=== PATIENT | male | born 1965 | race Caucasian/White ===

== ENCOUNTER 2017-03-30 19:19 | Emergency (ER) | payer BC ==
[2017-03-30 21:05] LABS: Appearance,Urine Clear (Clear); Bilirubin,Urine Negative (Negative); Blood,Urine Small (Negative); Color,Urine Yellow; Glucose,Urine (UA) Negative (Negative); Hyaline Casts,Urine 10 /lpf (0-2); Ketones,Urine Negative (Negative); Leukocyte Esterase,Urine Negative (Negative); Mucus,Urine Rare /hpf; Nitrite,Urine Negative (Negative); Protein,Urine 1+ (Negative); RBC,Urine 10 /hpf (0-5); Specific Gravity,Urine 1.024 (1.001-1.035); Squamous Epithelial Cell,Urine 1 /hpf (0-4); WBC,Urine 3 /hpf (0-5)
[2017-03-30] MEDS ORDERED: SODIUM CHLORIDE 0.9% 1,000 ML IV STA (21:14)
[2017-03-30] MEDS ORDERED: KETOROLAC 30 MG/ML 1 ML VIAL IVP STA (21:15)
--- NOTE | 2017-03-30 21:38 | ED ---
General Adult HPI - General Chief complaint: Abdominal Pain Stated complaint: Lumbar/Kidney Pain Time Seen by Provider: 03/30/17 21:00 Source: patient, RN notes reviewed Mode of arrival: ambulatory Limitations: no limitations - History of Present Illness Initial comments: Patient's a 51-year-old male who presents emergency room today with chief complaint of hematuria. He states he noticed this yesterday. States follow-up the family doctor earlier today had hematuria as well. States he's worried about possible kidney stone. Patient has mid to a history of chronic low back pain. He states that there is no new injury or trauma. He does not that this pain is worse with movements he feels in the middle of the lower back. Patient denies any bowel or bladder incontinence or retention. He denies any saddle she 's appeared denies any bites or associated symptoms. Patient denies any recent fever, chills, shortness of breath, chest pain, abdominal pain, nausea or vomiting, constipation or diarrhea, headaches or visual changes, or any other complaints. - Related Data Home Medications Medication Instructions Recorded Confirmed Baclofen 10 mg PO QID PRN 04/26/15 03/30/17 Diazepam [Valium] 5 mg PO BID PRN 04/26/15 03/30/17 Acetaminophen with Codeine 1 tab PO Q6HR PRN 03/30/17 03/30/17 [Tylenol w/codeine #4] Fish Oil/Dha/Epa [Fish Oil 1,200 1 cap PO DAILY 03/30/17 03/30/17 mg Fish Oil] Ibuprofen [Motrin] 800 mg PO TID 03/30/17 03/30/17 Lidocaine 5% Patch [Lidoderm] 1 patch TRANSDERM Q12H 03/30/17 03/30/17 Loratadine [Claritin] 10 mg PO DAILY 03/30/17 03/30/17 Multivitamins, Thera [Multivitamin 1 tab PO DAILY 03/30/17 03/30/17 (formulary)] Naproxen [Naprosyn] 250 mg PO BID PRN 03/30/17 03/30/17 Omeprazole 20 mg PO BID 03/30/17 03/30/17 Tapentadol HCl [Nucynta] 100 mg PO Q6H PRN 03/30/17 03/30/17 amLODIPine BESYLATE/BENAZEPRIL 1 cap PO BID 03/30/17 03/30/17 [Lotrel 5-20 mg Capsule] methylPREDNISolone [Medrol Dose See Taper PO DAILY 03/30/17 03/30/17 Pack] traMADol HCL [traMADol HCL ER] 200 mg PO DAILY PRN 03/30/17 03/30/17 Allergies Allergy/AdvReac Type Severity Reaction Status Date / Time pseudoephedrine Allergy Rash/Hives [facility]17 [facility] Review of Systems ROS Statement: Those systems with pertinent positive or pertinent negative responses have been documented in the HPI. ROS Other: All systems not noted in ROS Statement are negative. Past Medical History Past Medical History: No Reported History History of Any Multi-Drug Resistant Organisms: None Reported Additional Past Surgical History / Comment(s): left wrist surgery Past Psychological History: No Psychological Hx Reported Smoking Status: Current every day smoker Past Alcohol Use History: None Reported Past Drug Use History: None Reported General Exam - General Exam Comments Initial Comments: General: The patient is awake and alert, in no distress, and does not appear acutely ill. Eye: Pupils are equal, round and reactive to light, extra-ocular movements are intact. No nystagmus. There is normal conjunctiva bilaterally. No signs of icterus. Ears, nose, mouth and throat: There are moist mucous membranes and no oral lesions. Neck: The neck is supple, there is no tenderness or JVD. Cardiovascular: There is a regular rate and rhythm. No murmur, rub or gallop is appreciated. Respiratory: Lungs are clear to auscultation, respirations are non-labored, breath sounds are equal. No wheezes, stridor, rales, or rhonchi. Gastrointestinal: Soft, non-distended, non-tender abdomen without masses or organomegaly noted. There is no rebound or guarding present. No CVA tenderness. Bowel sounds are unremarkable. Musculoskeletal: Normal ROM. Normal appearance of the thoracic or lumbar spine. Does no step-off or deformity. Tenderness and lower lumbar from L3 to L5. Strength 5/5. Sensation intact. Pulses equal bilaterally 2+. Neurological: A&O x 3. CN II-XII intact, There are no obvious motor or sensory deficits. Coordination appears grossly intact. Speech is normal. Skin: Skin is warm and dry and no rashes or lesions are noted. Psychiatric: Cooperative, appropriate mood & affect, normal judgment. Limitations: no limitations Course Vital Signs 03/30/17 03/30/17 20:45 21:56 Temperature 98.4 F Pulse Rate 95 Respiratory 20 16 Rate Blood Pressure 130/61 O2 Sat by Pulse 97 Oximetry Medical Decision Making - Medical Decision Making Case discussed in detail with attending physician Dr. Ellis. Patient reexamined at this time is currently sleeping. His doesn't that pain is much improved here in the emergency room. This felt that part of his pain could be muscular skeletal as he does admit to a history of chronic low back pain. Does seem to be worse with certain movements. Patient x-ray of the abdomen and pelvis reveals bilateral stones in the kidney nothing that seems to be dropped down to the ureter. There is evidence for some masses was discussed with the patient about the importance of following up with his family doctor does have an appointment 2 days. He was advised to also follow up with nephrology. Patient at this time is comfortable will be discharged home does have Tylenol for at home that he can use. He is advised to return if symptoms increase or worsen. - Lab Data Result diagrams: 03/30/17 21:30 03/30/17 21:30 Lab Results 03/30/17 03/30/17 03/30/17 Range/Units 20:45 21:30 21:30 WBC 12.1 H (3.8-10.6) k/uL RBC 4.07 L (4.30-5.90) m/uL Hgb 12.4 L (13.0-17.5) gm/dL Hct 37.9 L (39.0-53.0) % MCV 93.2 (80.0-100.0) fL MCH 30.4 (25.0-35.0) pg MCHC 32.6 (31.0-37.0) g/dL RDW 13.7 (11.5-15.5) % Plt Count 252 (150-450) k/uL Neutrophils % 82 % Lymphocytes % 12 % Monocytes % 5 % Eosinophils % 0 % Basophils % 0 % Neutrophils # 10.0 H (1.3-7.7) k/uL Lymphocytes # 1.4 (1.0-4.8) k/uL Monocytes # 0.6 (0-1.0) k/uL Eosinophils # 0.1 (0-0.7) k/uL Basophils # 0.0 (0-0.2) k/uL Sodium 144 (137-145) mmol/L Potassium 4.1 (3.5-5.1) mmol/L Chloride 116 H (98-107) mmol/L Carbon Dioxide 19 L (22-30) mmol/L Anion Gap 9 mmol/L BUN 37 H (9-20) mg/dL Creatinine 2.00 H (0.66-1.25) mg/dL Est GFR (MDRD) Af Amer 43 (>60 ml/min/1.73 sqM) Est GFR (MDRD) Non-Af 35 (>60 ml/min/1.73 sqM) Glucose 149 H (74-99) mg/dL Calcium 9.0 (8.4-10.2) mg/dL Total Bilirubin 0.6 (0.2-1.3) mg/dL AST 132 H (17-59) U/L ALT 88 H (21-72) U/L Alkaline Phosphatase 78 (38-126) U/L Total Protein 5.9 L (6.3-8.2) g/dL Albumin 3.5 (3.5-5.0) g/dL Amylase <30 L (30-110) U/L Lipase 20 L (23-300) U/L Urine Color Yellow Urine Appearance Clear (Clear) Urine pH 6.0 (5.0-8.0) Ur Specific [place] 1.024 (1.001-1.035) Urine Protein 1+ H (Negative) Urine Glucose (UA) Negative (Negative) Urine Ketones Negative (Negative) Urine Blood Small H (Negative) Urine Nitrite Negative (Negative) Urine Bilirubin Negative (Negative) Urine Urobilinogen 2.0 (<2.0) mg/dL Ur Leukocyte Esterase Negative (Negative) Urine RBC 10 H (0-5) /hpf Urine WBC 3 (0-5) /hpf Ur Squamous Epith Cells 1 (0-4) /hpf Hyaline Casts 10 H (0-2) /lpf Urine Mucus Rare H (None) /hpf Disposition Clinical Impression: Kidney mass, Dehydration, Chronic back pain Disposition: HOME SELF-CARE Condition: Stable Instructions: Chronic Back Pain (ED) Additional Instructions: Please follow-up the family doctor with her scheduled appointment in 2 days. Please discuss about kidney masses that were seen on CT. Please continue current medications for pain. Please also follow-up with cycle manager. Please return to the emergency room for any other concerns. Referrals: Jackson Plunkett MD [Primary Care Provider] - 1-2 days Etta Craig MD [STAFF PHYSICIAN] - 1-2 days Time of Disposition: 22:38
[2017-03-30 22:00] LABS: ALT 88 U/L (21-72); AST 132 U/L (17-59); Albumin 3.5 g/dL (3.5-5.0); Alkaline Phosphatase 78 U/L (38-126); Amylase <30 U/L (30-110); Anion Gap 9 mmol/L; Blood Urea Nitrogen 37 mg/dL (9-20); Carbon Dioxide 19 mmol/L (22-30); Chloride 116 mmol/L (98-107); Glucose 149 mg/dL (74-99); Lipase 20 U/L (23-300); Potassium 4.1 mmol/L (3.5-5.1); Sodium 144 mmol/L (137-145); Total Bilirubin 0.6 mg/dL (0.2-1.3); Total Protein 5.9 g/dL (6.3-8.2)
--- NOTE | 2017-03-30 22:10 | CT ---
EXAMINATION TYPE: CT abdomen pelvis wo con DATE OF EXAM: 03/30/2017 COMPARISON: NONE HISTORY: Low back pain, painful urination and gross hematuria. CT DLP: 592.5 mGycm Automated exposure control for dose reduction was used. TECHNIQUE: Helical acquisition of images was performed from the lung bases through the pelvis. FINDINGS: Lung bases are clear. There is no pleural effusion. There is no pericardial effusion. Liver spleen pancreas gallbladder appear normal. Bile ducts are not dilated. There is no adrenal mass. There are rounded 2 cm somewhat exophytic densities on the cortex of the po sterior left kidney. There are numerous bilateral renal calculi. There is a similar 2 cm rounded dens ity on the posterior right kidney. There is no hydronephrosis. Ureters are not dilated. Bladder diste nds smoothly. There is no pelvic mass. Appendix appears normal. I see no intestinal wall thickening. There are no dilated loops. There is no retroperitoneal adenopathy. There are spondylotic changes in the lumbar spine. IMPRESSION: NUMEROUS BILATERAL NONOBSTRUCTING RENAL CALCULI. BILATERAL CORTICAL EXOPHYTIC ROUNDED RENAL MASSES. U LTRASOUND WOULD BE HELPFUL FOR FURTHER EVALUATION. THESE HAVE DENSITY HIGHER THAN WATER. NORMAL APPJERAD OJEDA.
[2017-03-30 22:14] LABS: Basophils % (A) 0 %; Eosinophils # (A) 0.1 k/uL (0-0.7); Eosinophils % (A) 0 %; HCT 37.9 % (39.0-53.0); HGB 12.4 gm/dL (13.0-17.5); Lymphocytes # (A) 1.4 k/uL (1.0-4.8); Lymphocytes % (A) 12 %; MCH 30.4 pg (25.0-35.0); MCHC 32.6 g/dL (31.0-37.0); MCV 93.2 fL (80.0-100.0); Monocytes # (A) 0.6 k/uL (0-1.0); Monocytes % (A) 5 %; Neutrophils % (A) 82 %; Platelet Count 252 k/uL (150-450); RBC 4.07 m/uL (4.30-5.90); RDW 13.7 % (11.5-15.5); WBC 12.1 k/uL (3.8-10.6)
[2017-03-30 23:18] VITALS: BP 132/80; PULSE 82; RESP 18; TEMP 98.2
== END 2017-03-30 23:10 | disposition home or self-care (01) ==
LOC: EC 19:19
DX: M54.5 Low back pain (principal); G89.29 Other chronic pain; E86.0 Dehydration; N28.89 Other specified disorders of kidney and ureter; F17.200 Nicotine dependence, unspecified, uncomplicated; Z88.8 Allergy status to other drugs, medicaments and biological substances; Z79.1 Long term (current) use of non-steroidal anti-inflammatories (NSAID); Z79.52 Long term (current) use of systemic steroids; Z79.899 Other long term (current) drug therapy
CPT/HCPCS: 99284; 96374; 96361; 36415; 80053; 82150; 83690; 85025; 81001; 87086; 74176; J1885

== ENCOUNTER → 2017-05-05 | Outpatient (CLI) | payer BC ==
--- NOTE | 2017-05-05 08:59 | US ---
EXAMINATION TYPE: US kidneys/renal and bladder DATE OF EXAM: 05/05/2017 COMPARISON: CT 2018, MRI CLINICAL HISTORY: D41.02 Left kidney mass, D41.01Right kidney mass; multiple renal stones EXAM MEASUREMENTS: Right Kidney: 10.5 x 6.1 x 4.1 cm Left Kidney: 10.5 x 7.2 x 4.9 cm Post Void Residual Volume: 5.2 mL Right Kidney: multiple renal calculi noted throughout and as per CT with approximate largest imaged m id pole = 0.7 x 1.0 x 0.4cm; superior pole anechoic focus with increased through transmission and imp erceptible wall compatible with simple cyst is noted = 2.5 x 2.6 x 2.6cm Left Kidney: multiple renal calculi noted throughout and approximate largest mid pole = 0.8 x 0.7 x 0 .6cm; multiple cortical cysts with largest at superolateral = 1.6 x 1.7 x 1.6cm., Likely simple, foci are anechoic, there is increased through transmission, imperceptible lopez Bladder: wnl Bilateral Jets seen: only right jet was seen after 3 minute observation Normal Post Void Residual: Yes There is no evidence for hydronephrosis at this point in time. Cortical medullary differentiation is maintained. IMPRESSION: Limitations as described. Bilateral nephrolithiasis. Simple cyst upper pole right kidney.
== END | disposition home or self-care (01) ==
LOC: RADUSWWP 07:16
PROVIDERS: ATTEND Urology
DX: N20.0 Calculus of kidney (principal); N28.1 Cyst of kidney, acquired; Z88.8 Allergy status to other drugs, medicaments and biological substances
CPT/HCPCS: 76770

== ENCOUNTER → 2018-06-06 | Outpatient (CLI) | payer BC ==
--- NOTE | 2018-06-06 09:06 | CT ---
EXAMINATION TYPE: CT sinus wo con DATE OF EXAM: 06/06/2018 COMPARISON: 04/26/2015 HISTORY: Chronic sinusits CT DLP: 590.[address] of the paranasal sinuses was performed in the axial and coronal planes. Bone and soft tissue settings are submitted. There is mucosal thickening of the maxillary sinuses left greater than right. Mild scattered ethmoida l air cell mucosal thickening noted. Minimal mucosal thickening of the sphenoid sinus. Mucous retenti on cyst or polyp within the sphenoid sinus. There is narrowing of the bilateral ostiomeatal units without obstruction. Nasal septum is deviated from right to left. Bilateral incidental middle turbinate mahad bullosa not ed. No bony destructive changes are seen within the field of view. IMPRESSION: Chronic sinusitis.
== END ==
LOC: RADCTMAIN 08:00
PROVIDERS: ATTEND Otolaryngology
DX: J32.9 Chronic sinusitis, unspecified (principal)
CPT/HCPCS: 70486

== ENCOUNTER → 2019-04-03 | Outpatient (CLI) | payer BC ==
[2019-04-03 09:52] LABS: HGB 15.8 gm/dL (13.0-17.5); MCH 30.4 pg (25.0-35.0); MCHC 33.6 g/dL (31.0-37.0); MCV 90.6 fL (80.0-100.0); Mean Platelet Volume 7.2; Platelet Count 244 k/uL (150-450); RBC 5.19 m/uL (4.30-5.90); RDW 13.4 % (11.5-15.5); WBC 6.6 k/uL (3.8-10.6)
[2019-04-03 10:06] LABS: Partial Thromboplastin Time 25.4 sec (22.0-30.0); Prothrombin Time 10.2 sec (9.0-12.0)
[2019-04-03 10:28] LABS: Albumin 4.7 g/dL (3.5-5.0); Potassium 4.5 mmol/L (3.5-5.1); Total Bilirubin 0.8 mg/dL (0.2-1.3); Total Protein 7.9 g/dL (6.3-8.2)
[2019-04-03 11:19] LABS: Appearance,Urine Clear (Clear); Color,Urine Yellow; Specific Gravity,Urine 1.015 (1.001-1.035)
[2019-04-03 11:20] LABS: Bilirubin,Urine Negative (Negative); Blood,Urine Negative (Negative); Glucose,Urine (UA) Negative (Negative); Ketones,Urine Negative (Negative); Leukocyte Esterase,Urine Negative (Negative); Nitrite,Urine Negative (Negative); Protein,Urine Negative (Negative); Urobilinogen,Urine <2.0 mg/dL (<2.0)
== END | disposition home or self-care (01) ==
LOC: LABPAT 09:03
PROVIDERS: ATTEND Orthopaedic Surgery
DX: Z01.818 Encounter for other preprocedural examination (principal); Z01.812 Encounter for preprocedural laboratory examination
CPT/HCPCS: 36415; 80053; 81003; 85027; 85610; 85730; 87070; 93005

== ENCOUNTER → 2022-10-29 | Outpatient (CLI) | payer BC ==
[2022-10-29 15:02] LABS: Blood Urea Nitrogen 17.3 mg/dL (9.0-27.0); Carbon Dioxide 24.5 mmol/L (21.6-31.8); Chloride 106 mmol/L (96-109); Potassium 4.5 mmol/L (3.5-5.5); Sodium 141 mmol/L (135-145)
[2022-10-29 16:03] LABS: HCT 44.6 % (39.6-50.0); HGB 14.7 d/dL (13.0-17.0); MCH 29.2 pg (27.0-32.0); MCV 88.7 FL (80.0-97.0); Mean Platelet Volume 10.5 FL (9.5-12.2); NRBC Per 100 WBC 0 X 10*3/uL (0.00-0.01); Platelet Count 224 X 10*3/uL (140-440); RBC 5.03 X 10*6/uL (4.40-5.60); WBC 5.66 X 10*3/uL (4.50-10.00)
== END | disposition home or self-care (01) ==
LOC: LABPAT 10:03
PROVIDERS: ATTEND Internal Medicine
DX: Z01.812 Encounter for preprocedural laboratory examination (principal); R94.39 Abnormal result of other cardiovascular function study
CPT/HCPCS: 36415; 80051; 82565; 84520; 85027